=== PATIENT | female | born 1955 | race Caucasian/White ===

== ENCOUNTER 2021-09-07 19:40 | Emergency (ER) | payer OTHER ==
[2021-09-07 19:49] VITALS: BP 127/83; PULSE 85; RESP 16; TEMP 98.5; BMI 50.3
[2021-09-07] MEDS ORDERED: SODIUM CHLORIDE 500 ML IV STA ×2 (20:03→20:39)
[2021-09-07 20:29] LABS: HEMATOCRIT 40.2 % (32.4-45.2); HEMOGLOBIN 13.8 G/dL (10.7-15.3); MCH 30.9 pg (25.7-33.7); MCHC 34.3 g/dl (32.0-36.0); MEAN CELL VOLUME 89.9 fl (80-96); MEAN PLT VOLUME 8.3 fl (7.5-11.1); PLATELET COUNT 226.3 10^3/uL (134-434); RBC 4.47 10^6/uL (3.60-5.2); WHITE BLOOD COUNT 14.3 10^3/uL (4.0-10.8)
[2021-09-07 20:32] LABS: EPITHELIAL CELLS FEW /hpf
[2021-09-07 20:33] LABS: CALCIUM OXALATE CRYSTALS MODERATE /hpf (NONE SEEN)
[2021-09-07 20:37] LABS: ALBUMIN 4.3 g/dl (3.4-5.0); BILIRUBIN,TOTAL 1.8 mg/dl (0.2-1); CALCIUM 10.2 mg/dl (8.5-10); TOT PROT 6.6 g/dl (6.4-8.2)
[2021-09-07 20:49] LABS: PLATELET ESTIMATE ADEQUATE
== END 2021-09-07 21:31 | disposition home or self-care (01) ==
LOC: FER 19:40
PROC: 3E0337Z Introduction of Electrolytic and Water Balance Substance into Peripheral Vein, Percutaneous Approach (ICD-10-PCS; principal; 2021-09-07)
PROC: 3E0337Z Introduction of Electrolytic and Water Balance Substance into Peripheral Vein, Percutaneous Approach (ICD-10-PCS; 2021-09-07)
DX: K90.0 Celiac disease (principal); R10.9 Unspecified abdominal pain
CPT/HCPCS: 36415; 80053; 81003; 81015; 85027; 99285-25